=== PATIENT | male | born 1975 | race Caucasian/White ===

== ENCOUNTER 2023-08-08 17:45 | Emergency (ER) | payer OTHER ==
[~2023-08-08] VITALS: Ht 182.9 cm; Wt 112.7 kg
[2023-08-08] MEDS ORDERED: VIAGRA100 M1 PO (18:46)
[2023-08-08] MEDS ORDERED: NEURONTIN300 M1 PO (18:46)
[2023-08-08] MEDS ORDERED: LIPITOR 40MG TA40 MG PO (18:46)
[2023-08-08] MEDS ORDERED: VITAMIN D3250 MC2 (18:47)
[2023-08-08 19:18] VITALS: BP 146/90
== END 2023-08-08 19:19 | disposition home or self-care (01) ==
LOC: ED 18:34
DX: S71.152A Open bite, left thigh, initial encounter (principal); S91.012A Laceration without foreign body, left ankle, initial encounter; Z23 Encounter for immunization; W54.0XXA Bitten by dog, initial encounter; Y92.009 Unspecified place in unspecified non-institutional (private) residence as the place of occurrence of the external cause
CPT/HCPCS: 90715